=== PATIENT | female | born 1990 | race Caucasian/White ===

== ENCOUNTER 2020-11-21 14:32 | Emergency (ER) | payer OTHER, SELFPAY ==
[2020-11-21 14:34] VITALS: BP 121/73; PULSE 74; RESP 16; TEMP 36.3; O2SAT 97; BMI 16.9
--- NOTE | 2020-11-21 14:42 | DI.RAD.S_ITS ---
PROCEDURE: XR CHEST 1V INDICATIONS: chest pain TECHNIQUE: One view of the chest was acquired. COMPARISON: None. FINDINGS: Surgical changes and devices: None. Lungs and pleura: Lungs are clear. No pleural effusions or pneumothorax. Mediastinum: Mediastinal contours appear normal. Heart size is normal. Bones and chest wall: No suspicious bony lesions. Overlying soft tissues appear unremarkable. IMPRESSION: No acute cardiopulmonary process demonstrated radiographically. Dictated by: Raghu Hinojosa M.D. on 11/21/2020 at 14:57 Approved by: Raghu Hinojosa M.D. on 11/21/2020 at 14:58
[2020-11-21 14:43] VITALS: BP 120/79; BP 121/78; BP 126/74; PULSE 73; PULSE 74; PULSE 88
[2020-11-21 15:08] LABS: Add Manual Diff / Slide Review NO; Basophils Absolute Auto 0 /uL (0-100); Basophils Percent Auto 0.4 % (0-2); Eosinophils Absolute Auto 200 /uL (0-450); Hematocrit 39.5 % (36-46); Hemoglobin 13.1 g/dL (12.0-16.0); Lymphocytes Absolute Auto 1400 /uL (1100-4500); Lymphocytes Percent Auto 26.6 % (25-40); Mean Corpuscular HGB Conc 33.1 % (30-36); Mean Corpuscular Hemoglobin 31.4 PG (26-34); Mean Corpuscular Volume 94.7 fL (80-100); Monocytes Absolute Auto 400 /uL (0-900); Monocytes Percent Auto 6.7 % (3-14); Neutrophils Absolute Auto 3300 /uL (1500-7000); Neutrophils Percent Auto 63.3 % (50-75); Platelet Count 175 X10^3/uL (150-400); Red Blood Cell Count 4.17 X10^6/uL (4.0-5.2); Red Cell Distribution Width 12.6 % (11.6-14.8); White Blood Cell Count 5.2 X10^3/uL (4.5-11.0)
[2020-11-21 15:21] LABS: Alanine Aminotransferase 19 IU/L (<35); Albumin 4.8 g/dL (3.5-5.0); Albumin Globulin Ratio 1.7 (1.0-2.8); Alkaline Phosphatase 48 U/L (38-126); Aspartate Aminotransferase 24 IU/L (14-36); BUN Creatinine Ratio 21.5 (6-22); Bilirubin Total 0.4 mg/dL (0.2-1.3); Blood Urea Nitrogen 14 mg/dL (7-17); Calcium 9.4 mg/dL (8.4-10.2); Carbon Dioxide 28 mmol/L (22-32); Chloride 105 mmol/L (98-107); Creatine Kinase 50 U/L (30-135); Estimated Glomerular Filt Rate > 60.0 mL/min (>60); Globulin 2.9 g/dL (1.7-4.1); Glucose 99 mg/dL (70-100); HEMOLYSIS < 15 (0-50); Lipase 176 U/L (23-300); Magnesium 2.1 mg/dL (1.6-2.3); Potassium 3.7 mmol/L (3.4-5.1); Sodium 142 mmol/L (137-145); Total Protein 7.7 g/dL (6.3-8.2)
[2020-11-21 15:32] LABS: Troponin I < 0.012 ng/mL (0.01-0.034)
[2020-11-21 18:26] VITALS: BP 108/73; PULSE 60; TEMP 36.7; O2SAT 99
[2020-11-21] MEDS: ONDANSETRON 4 MG ODT SL (19:12)
[2020-11-21] MEDS: MECLIZINE HCL 12.5 MG TABLET 25 MG PO (19:12)
[2020-11-21 20:12] LABS: Bacteria Urine Few (2-10); Culture Indicated Urine Cult Not Indicated; RBC Urine 0-1/HPF (0-5/HPF); Squamous Epithelial Cell Urine 1-5 /HPF (0-5/HPF); Transitional Epi Cells Urine 0-1/HPF (0-5/HPF); WBC Urine 0-1/HPF (0-5/HPF)
[2020-11-21 20:15] VITALS: BP 110/75; PULSE 64; RESP 16; O2SAT 99
--- NOTE | 2020-12-05 08:51 | ED.DIZZY ---
HPI - Dizziness <Neda Deleon PA-C - Last Filed: 12/05/20 09:01> General Chief Complaint: Dizziness Stated Complaint: Vertigo, nausea, chest pain. sent by doc Time Seen by Provider: 11/21/20 18:24 History of Present Illness HPI Narrative: 30-year-old female with no reported past medical history presents to the ED with 2 days of dizziness. Patient states that her dizziness started yesterday, has been intermittent, was the worst this morning. Patient describes it as the room moving around her. Patient also endorses some nausea. Patient denies any trouble ambulating. Patient denies fever, chills, chest pain, Nasal congestion, chest congestion, shortness of breath, cough, vomiting, dysuria, abdominal pain, lightheadedness, syncope. denies numbness, tingling, weakness. Review of Systems <Neda Deleon PA-C - Last Filed: 12/05/20 09:01> Constitutional Constitutional: Denies chills, Denies fatigue, Denies fever(s), Denies frequent falls, Denies lethargy and Denies weakness Eyes Eyes: Denies change in vision, Denies eye discharge, Denies irritation and Denies loss of vision ENT Ears, Nose, Mouth, and Throat: Denies change in voice, Reports dizziness, Denies neck pain, Denies sore throat and Denies throat swelling Cardiovascular Cardiovascular: Denies chest pain, Denies irregular heart rhythm, Denies lightheadedness, Denies palpitations, Denies dyspnea, Denies dyspnea on exertion and Denies orthopnea Respiratory Respiratory: Denies cough, Denies dyspnea, Denies dyspnea on exertion and Denies wheezing Gastrointestinal Gastrointestinal: Denies abdominal pain, Denies change in bowel habits, Denies diarrhea, Reports nausea and Denies vomiting Musculoskeletal Musculoskeletal: Denies neck pain and Denies numbness Integumentary/Breasts Skin/Breast: Denies pruritus, Denies erythema, Denies rash and Denies wounds Neurologic Neurologic: Denies behavioral changes, Denies confusion, Reports dizziness, Denies frequent falls, Denies loss of vision, Denies numbness and Denies weakness Psychiatric Psychiatric: Denies anxiety, Denies behavioral changes, Denies confusion, Denies depression, Denies homicidal ideation and Denies suicidal ideation Endocrine Endocrine: Denies fatigue, Denies flushing and Denies palpitations Hematologic/Lymphatic Hematologic/Lymphatic: Denies easy bruising Allergic/Immunologic Allergic/Immunologic: Denies urticaria, Denies throat swelling and Denies wheezing Exam <Neda Deleon PA-C - Last Filed: 12/05/20 09:01> Initial Vital Signs Initial Vital Signs: Vital Signs Temperature 97.3 F L 11/21/20 14:34 Pulse Rate 74 11/21/20 14:34 Respiratory Rate 16 11/21/20 14:34 Blood Pressure 121/73 11/21/20 14:34 Pulse Oximetry 97 11/21/20 14:34 Const General: cooperative [facility] Head: normocephalic and atraumatic Ears: external ears normal and TM's normal bilaterally Nose: external nose normal and No nasal discharge Face and sinus: sinuses nontender, face symmetric, no sinus tenderness and No dry mucous membranes Mouth: oral mucosae normal and moist mucous membranes Teeth and gingiva: dentition normal Throat: tonsils normal and uvula midline Eyes General: appearance normal, both eyes and all related structures Eyelids: eyelids normal Conjunctivae: conjunctivae normal Sclera: sclerae normal Pupils: PERRL EOM: EOM intact bilaterally Neck Neck: normal visual inspection, trachea midline, No lymphadenopathy, No midline deformity and No JVD Lymphatic: No lymphedema Chest Chest: normal inspection of the chest Resp Effort & Inspection: normal respiratory effort, able to speak in complete sentences, no respiratory distress and no use of accessory muscles Auscultation: clear to auscultation bilaterally, no rales, no rhonchi and no wheezes Cardio Rate: regular rate Rhythm: regular rhythm Heart Sounds: no click, no gallops, no murmurs and no rubs Pulses: normal peripheral pulses GI Inspection: non-distended Palpation: soft, no hepatosplenomegaly, No guarding, No pulsatile mass and No tender Auscultation: normal bowel sounds Back/Spine/Pelvis Back: No CVA tenderness Cervical Spine: cervical ROM normal and No pain with cervical ROM Thoracic/Lumbar Spine: thoracic and lumbar spine normal to inspection Skin General: no rashes or lesions noted, No jaundice and No petechiae Neuro General: patient alert, patient oriented x3, gait normal and no focal motor deficits Speech: speech normal Other: PERRLA. CN 1 through 12 intact. Gait normal. Negative rapid alternating movements, negative pronator drift, negative [id number], negative finger to nose. Extrem General: full ROM, no clubbing, cyanosis or edema, no pedal edema and no calf tenderness Psych Appearance: well kempt Mental Status: mental status grossly normal Attitude: cooperative Thought Content: normal and suicidality Judgment: judgment good <Tono Pace DO - Last Filed: 12/09/20 18:48> Initial Vital Signs Initial Vital Signs: Vital Signs Temperature 97.3 F L 11/21/20 14:34 Pulse Rate 74 11/21/20 14:34 Respiratory Rate 16 11/21/20 14:34 Blood Pressure 121/73 11/21/20 14:34 Pulse Oximetry 97 11/21/20 14:34 Course <Neda Deleon PA-C - Last Filed: 12/05/20 09:01> Course Course Narrative: Patient's symptoms greatly improved with meclizine, Zofran. Will discharge home with prescription for meclizine, ED return precautions. Orders Ordered: Discontinued Medications Meclizine HCl (Meclizine Hcl 12.5 Mg Tablet) 25 mg PO NOW ONE Stop: 11/21/20 18:49 Last Admin: 11/21/20 19:12 Dose: 25 mg Documented by: IRINA Ondansetron HCl (Ondansetron 4 Mg/2 Ml Inj) 4 mg IV NOW ONE Stop: 11/21/20 18:49 Last Admin: 11/21/20 19:44 Dose: Not Given Documented by: IRINA Ondansetron HCl (Ondansetron 4 Mg Odt) 4 mg SL NOW ONE Stop: 11/21/20 18:50 Last Admin: 11/21/20 19:12 Dose: 4 mg Documented by: IRINA <Tono Pace DO - Last Filed: 12/09/20 18:48> Orders Ordered: Discontinued Medications Meclizine HCl (Meclizine Hcl 12.5 Mg Tablet) 25 mg PO NOW ONE Stop: 11/21/20 18:49 Last Admin: 11/21/20 19:12 Dose: 25 mg Documented by: IRINA Ondansetron HCl (Ondansetron 4 Mg/2 Ml Inj) 4 mg IV NOW ONE Stop: 11/21/20 18:49 Last Admin: 11/21/20 19:44 Dose: Not Given Documented by: IRINA Ondansetron HCl (Ondansetron 4 Mg Odt) 4 mg SL NOW ONE Stop: 11/21/20 18:50 Last Admin: 11/21/20 19:12 Dose: 4 mg Documented by: IRINA MDM - Dizziness <Neda Deleon PA-C - Last Filed: 12/05/20 09:01> Medical Records Attestation: I reviewed the patient's medical records. Lab Data Attestation: I reviewed the patient's lab results. Lab results narrative: Labs within normal limits. UA negative. Result diagrams: 11/21/20 14:44 11/21/20 14:44 Labs: Lab Results 11/21/20 11/21/20 11/21/20 Range/Units 14:44 14:44 19:38 WBC 5.2 (4.5-11.0) X10^3/uL RBC 4.17 (4.0-5.2) X10^6/uL Hgb 13.1 (12.0-16.0) g/dL Hct 39.5 (36-46) % MCV 94.7 (80-100) fL MCH 31.4 (26-34) PG MCHC 33.1 (30-36) % RDW 12.6 (11.6-14.8) % Plt Count 175 (150-400) X10^3/uL Neut % (Auto) 63.3 (50-75) % Lymph % (Auto) 26.6 (25-40) % [place] % (Auto) 6.7 (3-14) % Eos % (Auto) 3.0 (2-4) % Baso % (Auto) 0.4 (0-2) % Neut # (Auto) 3300 (9060-2411) /uL Lymph # (Auto) 1400 (3828-0683) /uL [place] # (Auto) 400 (0-900) /uL Eos # (Auto) 200 (0-450) /uL Baso # (Auto) 0 (0-100) /uL Sodium 142 (137-145) mmol/L Potassium 3.7 (3.4-5.1) mmol/L Chloride 105 (98-107) mmol/L Carbon Dioxide 28 (22-32) mmol/L BUN 14 (7-17) mg/dL Creatinine 0.65 (0.52-1.04) mg/dL Estimated GFR > 60.0 (>60) mL/min BUN/Creatinine Ratio 21.5 (6-22) Glucose 99 (70-100) mg/dL Calcium 9.4 (8.4-10.2) mg/dL Magnesium 2.1 (1.6-2.3) mg/dL Total Bilirubin 0.4 (0.2-1.3) mg/dL AST 24 (14-36) IU/L ALT 19 (<35) IU/L Alkaline Phosphatase 48 (38-126) U/L Total Creatine Kinase 50 (30-135) U/L CK-MB (CK-2) TNP CK-MB (CK-2) Rel Index TNP Troponin I < 0.012 (0.01-0.034) ng/mL Total Protein 7.7 (6.3-8.2) g/dL Albumin 4.8 (3.5-5.0) g/dL Globulin 2.9 (1.7-4.1) g/dL Albumin/Globulin Ratio 1.7 (1.0-2.8) Lipase 176 (23-300) U/L Urine RBC 0-1/hpf (0-5/HPF) Urine WBC 0-1/hpf (0-5/HPF) Ur Squamous Epith Cells 1-5 /hpf (0-5/HPF) Ur Transition Epith Cell 0-1/hpf (0-5/HPF) Urine Bacteria Few (2-10) H (None) Ur Culture Indicated? Cult not indicated Point of Care Testing Test Results Negative Urine Dip Bedside Urine Glucose Negative Bedside Urine Bilirubin - Negative Bedside Urine Ketone - Negative Urine Specific [place] 1.010 Bedside Urine Occult Blood +/- Bedside Urine pH 705 Bedside Urine Protein - Negative Bedside Urine Urobilinogen - Negative Bedside Urine Nitrite - Negative Bedside Urine Leukocytes - Negative Esterase MDM Narrative Medical decision making narrative: 30-year-old female with no reported past medical history presents to the ED with 2 days of dizziness. Given reassuring physical exam, neuro intact, likely peripheral vertigo. Will treat with meclizine, Zofran, re-evaluate. <Tono Pace DO - Last Filed: 12/09/20 18:48> Lab Data Labs: Lab Results 11/21/20 11/21/20 11/21/20 Range/Units 14:44 14:44 19:38 WBC 5.2 (4.5-11.0) X10^3/uL RBC 4.17 (4.0-5.2) X10^6/uL Hgb 13.1 (12.0-16.0) g/dL Hct 39.5 (36-46) % MCV 94.7 (80-100) fL MCH 31.4 (26-34) PG MCHC 33.1 (30-36) % RDW 12.6 (11.6-14.8) % Plt Count 175 (150-400) X10^3/uL Neut % (Auto) 63.3 (50-75) % Lymph % (Auto) 26.6 (25-40) % [place] % (Auto) 6.7 (3-14) % Eos % (Auto) 3.0 (2-4) % Baso % (Auto) 0.4 (0-2) % Neut # (Auto) 3300 (9486-5372) /uL Lymph # (Auto) 1400 (4940-1302) /uL [place] # (Auto) 400 (0-900) /uL Eos # (Auto) 200 (0-450) /uL Baso # (Auto) 0 (0-100) /uL Sodium 142 (137-145) mmol/L Potassium 3.7 (3.4-5.1) mmol/L Chloride 105 (98-107) mmol/L Carbon Dioxide 28 (22-32) mmol/L BUN 14 (7-17) mg/dL Creatinine 0.65 (0.52-1.04) mg/dL Estimated GFR > 60.0 (>60) mL/min BUN/Creatinine Ratio 21.5 (6-22) Glucose 99 (70-100) mg/dL Calcium 9.4 (8.4-10.2) mg/dL Magnesium 2.1 (1.6-2.3) mg/dL Total Bilirubin 0.4 (0.2-1.3) mg/dL AST 24 (14-36) IU/L ALT 19 (<35) IU/L Alkaline Phosphatase 48 (38-126) U/L Total Creatine Kinase 50 (30-135) U/L CK-MB (CK-2) TNP CK-MB (CK-2) Rel Index TNP Troponin I < 0.012 (0.01-0.034) ng/mL Total Protein 7.7 (6.3-8.2) g/dL Albumin 4.8 (3.5-5.0) g/dL Globulin 2.9 (1.7-4.1) g/dL Albumin/Globulin Ratio 1.7 (1.0-2.8) Lipase 176 (23-300) U/L Urine RBC 0-1/hpf (0-5/HPF) Urine WBC 0-1/hpf (0-5/HPF) Ur Squamous Epith Cells 1-5 /hpf (0-5/HPF) Ur Transition Epith Cell 0-1/hpf (0-5/HPF) Urine Bacteria Few (2-10) H (None) Ur Culture Indicated? Cult not indicated Point of Care Testing Test Results Negative Urine Dip Bedside Urine Glucose Negative Bedside Urine Bilirubin - Negative Bedside Urine Ketone - Negative Urine Specific [place] 1.010 Bedside Urine Occult Blood +/- Bedside Urine pH 705 Bedside Urine Protein - Negative Bedside Urine Urobilinogen - Negative Bedside Urine Nitrite - Negative Bedside Urine Leukocytes - Negative Esterase Discharge Plan Departure Patient Disposition: Home Clinical Impression: Dizziness Instructions: Vertigo Activity Restrictions/Additional Instructions: You were evaluated in the ED today for dizziness, nausea, chest tightness. Your chest x-ray, EKG, labs were normal. Your physical exam was also very reassuring. You can take meclizine for dizziness. Return to the ED if your symptoms worsen, you in control of bleed vomit, or unable to keep any fluids or solids down. <Tono Pace DO - Last Filed: 12/09/20 18:48> Cosign ED Attending Cosignature Attestation: I was immediately available in the department for consultation. This documentation has been reviewed and I agree with assessment and plan. Supervised by Tono Pace DO
== END 2020-11-21 20:15 | disposition home or self-care (01) ==
PROVIDERS: Emergency Medicine; Emergency Provider Student in an Organized Health Care Education/Training Program
DX: R42 Dizziness and giddiness (principal); R07.9 Chest pain, unspecified
CPT/HCPCS: 36415; 71045; 80053; 81003; 81015; 81025; 82550; 83690; 83735; 84484; 85025; 93005; 99283; 99284

== ENCOUNTER 2020-12-11 23:28 | Emergency (ER) | payer OTHER, SELFPAY ==
[2020-12-11 23:38] VITALS: PULSE 76; RESP 12; TEMP 36.7; O2SAT 99; BMI 17.4
[2020-12-11 23:41] VITALS: BP 111/76; PULSE 76; RESP 20; O2SAT 99
[2020-12-12] VITALS: BP 101/63; PULSE 71; RESP 20; O2SAT 96
--- NOTE | 2020-12-12 00:15 | ED.ARRPALP ---
HPI - Arrhythmia/Palpitations General Chief Complaint: Arrhythmia/Palpitations Stated Complaint: chest pain/tightness x8 hours Time Seen by Provider: 12/11/20 23:46 Source: patient Mode of arrival: Ambulatory History of Present Illness HPI narrative: Patient is a 30-year-old female. Early there was month she was seen here in the emergency department for dizziness. She was given meclizine. The symptoms have all but resolved however she has had occasional chest discomfort and chest tightness and palpitations and shortness of breath since that time. She has seen her primary doctor. Was instructed that she should follow-up with cardiology but does not have this scheduled up until this point. Today while at work she again had the symptoms. She describes it as a fullness in her chest. She currently is not having any symptoms. Has not tried anything for the symptoms prior to arrival. Review of Systems Constitutional Constitutional: Denies fever(s) Cardiovascular Cardiovascular: Reports as per HPI Respiratory Respiratory: Reports as per HPI Gastrointestinal Gastrointestinal: Reports as per HPI and Reports system reviewed and no additional complaints, except as documented Genitourinary Genitourinary: Reports system reviewed and no additional complaints, except as documented Integumentary/Breasts Skin/Breast: Reports system reviewed and no additional complaints, except as documented Neurologic Neurologic: Reports system reviewed and no additional complaints, except as documented Hematologic/Lymphatic On Anticoagulants: No Patient History Medical History Healthy adult Social History Smoking Status: Never smoker Smoking Status: Never smoker alcohol intake frequency: a few times a month Substance Use Type: does not use Exam Initial Vital Signs Initial Vital Signs: Vital Signs Temperature 98.0 F 12/11/20 23:38 Pulse Rate 76 12/11/20 23:38 Respiratory Rate 12 12/11/20 23:38 Pulse Oximetry 99 12/11/20 23:38 Const General: cooperative, healthy appearing, comfortable and well developed [facility] Head: normal to inspection and normocephalic Eyes General: appearance normal, both eyes and all related structures Resp Effort & Inspection: normal respiratory effort Auscultation: clear to auscultation bilaterally Cardio Rate: regular rate Rhythm: regular rhythm GI Inspection: non-distended Palpation: soft Skin General: no rashes or lesions noted Neuro General: patient alert, patient awake, patient oriented x3 and moves all extremities Extrem General: normal to inspection, capillary refill normal and No edema Psych Appearance: grossly normal Course Orders Ordered: ED Orders 12/11/20 23:38 EKG-12 Lead Stat 12/12/20 00:27 XR chest 1V Stat Vital Signs Vital signs: Vital Signs - 8 hr 12/11/20 23:38 12/11/20 23:41 12/12/20 00:00 Temperature 98.0 F Pulse Rate 76 76 71 Respiratory Rate 12 20 20 Blood Pressure 111/76 101/63 Pulse Oximetry 99 99 96 MDM - Arrhythmia/Palpitations Imaging Data Chest x-ray: Radiologist's Impresson: [address] [address] XRay Report Signed Patient: Shayla Rubin MR#: [id number] : 1990 Acct:[id number] Age/Sex: 30 / F Date of Service: 12/12/20 Loc: ED Accession Number: [id number] ?? Procedure: XR chest 1V Ordering Provider: Moi Wright D.O. PROCEDURE:? XR CHEST 1V ? INDICATIONS:? SOB ? TECHNIQUE:? One view of the chest was acquired.? ? COMPARISON:? [facility], , XR CHEST 1V, 11/21/2020, 14:42. ? FINDINGS:? ? Surgical changes and devices:? None.? ? Lungs and pleura:? Lungs are clear.? No pleural effusions or pneumothorax.? ? Mediastinum:? Mediastinal contours appear normal.? Heart size is normal.? ? Bones and chest wall:? No suspicious bony lesions.? Overlying soft tissues appear unremarkable.? ? IMPRESSION:? No acute cardiopulmonary disease. ? ? Dictated by: Emilee Castillo M.D. on 12/12/2020 at 1:00 ? ? Approved by: Emilee Castillo M.D. on 12/12/2020 at 1:01?? ECG Data Attestation: I personally reviewed and interpreted this ECG as follows: Prior ECG tracings: available for review Interpretation: Sinus rhythm Ventricular rate is 78 Normal axis Normal QRS Normal QTC No ST T wave changes MDM Narrative Medical decision making narrative: Patient is asymptomatic. Chest x-ray is unremarkable. EKG is unremarkable. Low suspicion for ACS. Low suspicion for CVA. No indication for antibiotics. Has a benign exam. Will have her contact her primary doctor and continue with a follow-up with Cardiology. She will most likely need a Holter monitor and potentially stress testing. She was given return precautions and follow-up instructions. She expressed understanding agreement. Discharge Plan Departure Patient Disposition: Home Clinical Impression: Atypical chest pain Instructions: DI for Atypical Chest Pain Activity Restrictions/Additional Instructions: Recommend that you talk with your primary doctor about the indications for a referral to see Cardiology, a Holter monitor, stress testing. Your EKG and chest x-ray today are all unremarkable. Return to the emergency department for any new or worsening symptoms
--- NOTE | 2020-12-12 00:27 | DI.RAD.S_ITS ---
PROCEDURE: XR CHEST 1V INDICATIONS: SOB TECHNIQUE: One view of the chest was acquired. COMPARISON: [facility], CR, XR CHEST 1V, 11/21/2020, 14:42. FINDINGS: Surgical changes and devices: None. Lungs and pleura: Lungs are clear. No pleural effusions or pneumothorax. Mediastinum: Mediastinal contours appear normal. Heart size is normal. Bones and chest wall: No suspicious bony lesions. Overlying soft tissues appear unremarkable. IMPRESSION: No acute cardiopulmonary disease. Dictated by: Emilee Castillo M.D. on 12/12/2020 at 1:00 Approved by: Emilee Castillo M.D. on 12/12/2020 at 1:01
[2020-12-12 00:30] VITALS: BP 106/62; PULSE 71; RESP 27; O2SAT 96
[2020-12-12 01:00] VITALS: BP 94/59; PULSE 71; RESP 18; O2SAT 96
== END 2020-12-12 01:12 | disposition home or self-care (01) ==
PROVIDERS: Emergency Provider Emergency Medicine
DX: R07.89 Other chest pain (principal); R42 Dizziness and giddiness; R00.2 Palpitations
CPT/HCPCS: 71045; 93005; 99283; 99284

== ENCOUNTER → 2021-01-08 08:51 | Outpatient (CLI) | payer OTHER, SELFPAY ==
--- NOTE | 2021-01-08 | DI.ECHO.S_ITS ---
[facility]---------+ [facility] +---------+ : : [address] : : : : [id number] : : : : Phone: [phone] Echocardiogram Report + + :Name: JUN MARTINES Study Date: 01/08/2021 Height: 66 in : :[facility] ReadingLocation: Weight: 110 lb : : Gender: Female BSA: 1.6 m2 : :: 1990 Age: 30 yrs BP: 113/71 mmHg: :Reason For Study: CHEST PAIN : :Ordering Physician: RACH, : :ABISAI Medel Performed By: Yani Magallon : :Referring: ABISAI LOYD : + + Interpretation Summary Normal sinus rhythm. Normal LV size, wall thickness, wall motion and LV systolic function. EF is 60-65%. Normal chamber sizes. No valvular abnormalities. No prior study available for comparison. Procedure: A two-dimensional transthoracic echocardiogram with color flow and Doppler was performed. The study quality was technically good. There is no prior echocardiogram noted for this patient. The patient was in sinus rhythm with heart rates between 72-85 bpm during the exam. Left Ventricle: The left ventricle is normal in size and wall thickness. The ejection fraction is estimated to be 60-65%. Right Ventricle: The right ventricle is normal in size and function. Atria: The left atrial size is normal. Right atrial size is normal. There is no Doppler evidence for an interatrial shunt. Mitral Valve: The mitral valve is normal in structure and function. There is no mitral regurgitation noted. Aortic Valve: The aortic valve is trileaflet. The aortic valve opens well. There is no aortic valve stenosis. No aortic regurgitation is present. Tricuspid Valve: The tricuspid valve is normal in structure and function. There is trace tricuspid regurgitation. Pulmonary artery pressures cannot be estimated because of the lack of a measurable TR jet velocity but the IVC suggests a CVP of around 3 mmHg. Pulmonic Valve: The pulmonic valve leaflets are thin and pliable; valve motion is normal. There is trace pulmonic regurgitation. Great Vessels: The aortic root is normal size. The dimensions of the ascending aorta are normal. The IVC is of normal diameter and collapses greater than 50% with a sniff. This suggests a low right atrial pressure of 3 mm Hg. Pericardium/ Pleura There is no pericardial effusion. There is no pleural effusion. MMode/2D Measurements & Calculations LVIDd: 4.2 cm LVOT diam: 1.8 cm LVIDs: 2.9 cm Ao root diam: 2.8 cm FS: 31.2 % asc Aorta Diam: 2.9 cm IVSd: 0.51 cm Ao Arch Diam (Prox Trans): 2.3 cm LVPWd: 0.62 cm LV sosa. diameter/BSA (cm/m^2): 2.7 LV sys. diameter/BSA (cm/m^2): 1.8 LA A2 area: 13.3 cm2 RA long axis: 3.8 cm LA A4 area: 14.5 cm2 RA area: 10.3 cm2 LA length (vol): 4.2 cm RA vol: 23.6 ml LA vol: 38.9 ml RA : 15.2 ml/m2 LA vol index: 25.1 ml/m2 IVC diam: 2.0 cm RVD1 (basal): 3.3 cm TAPSE: 1.8 cm Doppler Measurements & Calculations Ao V2 max: 121.6 cm/sec LVOT Max Silas: 91.9 cm/sec Ao V2 mean: 85.4 cm/sec LV V1 max P.4 mmHg Ao max P.9 mmHg LV V1 VTI: 19.3 cm Ao mean P.2 mmHg RYAN(I,D): 1.9 cm2 Ao V2 VTI: 24.9 cm RYAN(V,D): 1.8 cm2 sev ratio: 0.78 RYAN indexed to BSA (cm^2/m^2): 1.2 MV E max silas: 86.6 cm/sec PA V2 max: 97.7 cm/sec MV A max silas: 58.0 cm/sec PA V2 mean: 72.2 cm/sec MV E/A: 1.5 PA mean P.3 mmHg Med Peak E' Silas: 12.8 cm/sec PA pr(Accel): 30.2 mmHg E/E' med: 6.8 Lat Peak E' Silas: 13.1 cm/sec E/E' lat: 6.6 E/e' average: 6.7 MV dec time: 0.16 sec SV(LVOT): 46.6 ml Electronically signed by: Sarah Doss M.D. on Reading Physician:01/08/2021 01:05 PM
== END ==
PROVIDERS: Referring Provider Family Medicine; Visit Provider Family Medicine
DX: R07.9 Chest pain, unspecified (principal); R42 Dizziness and giddiness
CPT/HCPCS: 93306

== ENCOUNTER 2021-02-05 16:48 | Emergency (ER) | payer OTHER, SELFPAY ==
[2021-02-05 16:55] VITALS: BP 128/89; PULSE 79; RESP 18; TEMP 36.6; O2SAT 100; BMI 17.7
--- NOTE | 2021-02-05 17:13 | DI.RAD.S_ITS ---
PROCEDURE: XR CHEST 2V INDICATIONS: Chest pain TECHNIQUE: 2 views of the chest were acquired. COMPARISON: [facility], CR, XR CHEST 1V, 12/12/2020, 0:29. FINDINGS: Surgical changes and devices: None. Lungs and pleura: Mild patchy bilateral perihilar opacity.. No pleural effusions or pneumothorax. Mediastinum: Mediastinal contours are normal. Heart size is normal. Bones and chest wall: No suspicious bony abnormalities. Soft tissues appear unremarkable. IMPRESSION: Mild atypical pneumonia Dictated by: Jayla Rivera M.D. on 02/05/2021 at 17:38 Approved by: Jayla Rivera M.D. on 02/05/2021 at 17:38
[2021-02-05 17:41] LABS: Add Manual Diff / Slide Review NO; Basophils Absolute Auto 0 /uL (0-100); Basophils Percent Auto 0.3 % (0-2); Eosinophils Absolute Auto 200 /uL (0-450); Eosinophils Percent Auto 1.9 % (2-4); Hematocrit 37.8 % (36-46); Hemoglobin 12.9 g/dL (12.0-16.0); Lymphocytes Absolute Auto 1400 /uL (1100-4500); Lymphocytes Percent Auto 16.6 % (25-40); Mean Corpuscular HGB Conc 34.1 % (30-36); Mean Corpuscular Hemoglobin 31.6 PG (26-34); Mean Corpuscular Volume 92.7 fL (80-100); Monocytes Absolute Auto 500 /uL (0-900); Monocytes Percent Auto 6.4 % (3-14); Neutrophils Absolute Auto 6300 /uL (1500-7000); Neutrophils Percent Auto 74.8 % (50-75); Platelet Count 159 X10^3/uL (150-400); Red Blood Cell Count 4.08 X10^6/uL (4.0-5.2); Red Cell Distribution Width 12.6 % (11.6-14.8); White Blood Cell Count 8.4 X10^3/uL (4.5-11.0)
[2021-02-05 17:47] VITALS: PULSE 67; RESP 19; O2SAT 99
[2021-02-05 17:50] LABS: COVID19 -Nasal RAPID Negative (Negative)
[2021-02-05 17:58] LABS: Alanine Aminotransferase 23 IU/L (<35); Albumin 4.8 g/dL (3.5-5.0); Albumin Globulin Ratio 1.7 (1.0-2.8); Alkaline Phosphatase 48 U/L (38-126); Aspartate Aminotransferase 28 IU/L (14-36); BUN Creatinine Ratio 19.4 (6-22); Bilirubin Total 0.4 mg/dL (0.2-1.3); Blood Urea Nitrogen 13 mg/dL (7-17); Calcium 9.4 mg/dL (8.4-10.2); Carbon Dioxide 26 mmol/L (22-32); Chloride 105 mmol/L (98-107); Creatine Kinase 79 U/L (30-135); Estimated Glomerular Filt Rate > 60.0 mL/min (>60); Globulin 2.9 g/dL (1.7-4.1); Glucose 90 mg/dL (70-100); HEMOLYSIS < 15 (0-50); Lipase 168 U/L (23-300); Magnesium 2.2 mg/dL (1.6-2.3); Potassium 3.7 mmol/L (3.4-5.1); Sodium 138 mmol/L (137-145); Total Protein 7.7 g/dL (6.3-8.2)
[2021-02-05 18:00] VITALS: BP 109/65; PULSE 73; RESP 21; O2SAT 98
[2021-02-05 18:10] LABS: Troponin I < 0.012 ng/mL (0.01-0.034)
[2021-02-05 18:30] VITALS: BP 109/67; PULSE 73; RESP 19; O2SAT 99
[2021-02-05 18:56] VITALS: BP 109/67; PULSE 76; RESP 18; TEMP 36.9; O2SAT 99
--- NOTE | 2021-02-05 20:25 | ED.CHESTPAIN ---
HPI - Chest Pain <Neda Deleon PA-C - Last Filed: 02/05/21 20:33> General Chief Complaint: Chest Pain Stated Complaint: SHARP PAIN IN THE LUNGS Time Seen by Provider: 02/05/21 17:23 Source: patient Mode of arrival: Ambulatory Limitations: no limitations History of Present Illness HPI narrative: 30-year-old female with no reported past medical history presents to the ED with 2 days of right-sided chest discomfort. Patient states she had a cold and a cough 1 week ago, but yesterday she started feeling right-sided chest discomfort which he describes as some vibrations in her chest. Patient states the discomfort is aggravated by inspiration. Patient also endorses some chills that she experienced earlier today. Patient denies fever, shortness of breath, nausea, vomiting, abdominal pain, dysuria, lightheadedness, dizziness, syncope. Patient states that she tested negative for COVID last week. Patient denies history of blood clots, family history of blood clots, recent immobilization, recent surgeries, exogenous hormone use. Related Data Previous Rx's Medication Instructions Recorded azithromycin 250 mg tablet See Rx Instructions .ROUTE 02/05/21 (Zithromax Z-Bernard) .COMPLEX #6 tab Allergies Allergy/AdvReac Type Severity Reaction Status Date / Time No Known Drug Allergies Allergy Verified 02/05/21 16:55 Review of Systems <Neda Deleon PA-C - Last Filed: 02/05/21 20:33> Review of Systems ROS Unobtainable: All systems reviewed & are unremarkable except as noted in HPI and below Constitutional Constitutional: Reports chills, Denies fatigue, Denies fever(s), Denies frequent falls, Denies lethargy and Denies weakness Eyes Eyes: Denies change in vision, Denies eye discharge, Denies irritation and Denies loss of vision ENT Ears, Nose, Mouth, and Throat: Denies change in voice, Denies dizziness, Denies neck pain, Denies sore throat and Denies throat swelling Cardiovascular Cardiovascular: Reports chest pain, Denies irregular heart rhythm, Denies lightheadedness, Denies palpitations, Denies dyspnea, Denies dyspnea on exertion and Denies orthopnea Respiratory Respiratory: Denies cough, Denies dyspnea, Denies dyspnea on exertion and Denies wheezing Gastrointestinal Gastrointestinal: Denies abdominal pain, Denies change in bowel habits, Denies diarrhea, Denies nausea and Denies vomiting Genitourinary Genitourinary: Denies hematuria, Denies flank pain, Denies urinary incontinence and Denies urinary urgency Musculoskeletal Musculoskeletal: Denies back pain, Denies muscle weakness, Denies neck pain, Denies numbness and Denies tingling Integumentary/Breasts Skin/Breast: Denies pruritus, Denies erythema, Denies rash and Denies wounds Neurologic Neurologic: Denies behavioral changes, Denies confusion, Denies dizziness, Denies frequent falls, Denies loss of vision, Denies numbness, Denies tingling and Denies weakness Psychiatric Psychiatric: Denies anxiety, Denies behavioral changes, Denies confusion, Denies depression, Denies homicidal ideation and Denies suicidal ideation Endocrine Endocrine: Denies fatigue, Denies flushing and Denies palpitations Hematologic/Lymphatic Hematologic/Lymphatic: Denies easy bruising Allergic/Immunologic Allergic/Immunologic: Denies urticaria, Denies throat swelling and Denies wheezing Patient History <Neda Deleon PA-C - Last Filed: 02/05/21 20:33> Medical History Healthy adult Social History Smoking Status: Never smoker Smoking Status: Never smoker alcohol intake frequency: a few times a month Substance Use Type: does not use Exam <Neda Deleon PA-C - Last Filed: 02/05/21 20:33> Initial Vital Signs Initial Vital Signs: Vital Signs Temperature 97.9 F 02/05/21 16:55 Pulse Rate 79 02/05/21 16:55 Respiratory Rate 18 02/05/21 16:55 Blood Pressure 128/89 02/05/21 16:55 Pulse Oximetry 100 02/05/21 16:55 Const General: cooperative, healthy appearing and comfortable [facility] Head: normal to inspection Eyes General: appearance normal, both eyes and all related structures Neck Neck: normal visual inspection Chest Chest: normal inspection of the chest Resp Effort & Inspection: normal respiratory effort Auscultation: clear to auscultation bilaterally Cardio Rate: regular rate Rhythm: regular rhythm GI Other: Abdomen is soft, nontender, nondistended. General: No CVA tenderness Back/Spine/Pelvis Back: normal to inspection Skin General: no rashes or lesions noted Neuro General: patient alert, patient awake and patient oriented x3 <Katherine Joseph DO - Last Filed: 02/06/21 13:58> Initial Vital Signs Initial Vital Signs: Vital Signs Temperature 97.9 F 02/05/21 16:55 Pulse Rate 79 02/05/21 16:55 Respiratory Rate 18 02/05/21 16:55 Blood Pressure 128/89 02/05/21 16:55 Pulse Oximetry 100 02/05/21 16:55 Course <Neda Deleon PA-C - Last Filed: 02/05/21 20:33> Orders Ordered: ED Orders 02/05/21 17:00 COVID19 -Nasal swab/Pre-Proc Stat 02/05/21 17:13 XR chest 2V Stat 02/05/21 17:21 EKG-12 Lead Stat 02/05/21 17:30 Complete Blood Count AUTO DIFF Stat Comprehensive Metabolic Panel Stat Lipase Stat Magnesium Stat Troponin & CK Cardiac Panel Stat Vital Signs Vital signs: Vital Signs - 8 hr 02/05/21 16:55 02/05/21 17:47 02/05/21 18:00 Temperature 97.9 F Pulse Rate 79 67 73 Respiratory Rate 18 19 21 Blood Pressure 128/89 109/65 Pulse Oximetry 100 99 98 02/05/21 18:30 02/05/21 18:56 Temperature 98.4 F Pulse Rate 73 76 Respiratory Rate 19 18 Blood Pressure 109/67 109/67 Pulse Oximetry 99 99 <Katherine Joseph DO - Last Filed: 02/06/21 13:58> Orders Ordered: ED Orders 02/05/21 17:00 COVID19 -Nasal swab/Pre-Proc Stat 02/05/21 17:13 XR chest 2V Stat 02/05/21 17:21 EKG-12 Lead Stat 02/05/21 17:30 Complete Blood Count AUTO DIFF Stat Comprehensive Metabolic Panel Stat Lipase Stat Magnesium Stat Troponin & CK Cardiac Panel Stat Vital Signs Vital signs: Vital Signs - 8 hr 02/05/21 16:55 02/05/21 17:47 02/05/21 18:00 Temperature 97.9 F Pulse Rate 79 67 73 Respiratory Rate 18 19 21 Blood Pressure 128/89 109/65 Pulse Oximetry 100 99 98 02/05/21 18:30 02/05/21 18:56 Temperature 98.4 F Pulse Rate 73 76 Respiratory Rate 19 18 Blood Pressure 109/67 109/67 Pulse Oximetry 99 99 MDM - Chest Pain <Neda Deleon PA-C - Last Filed: 02/05/21 20:33> Lab Data Attestation: I reviewed the patient's lab results. Lab results narrative: Labs within normal limits. Result diagrams: 02/05/21 17:30 02/05/21 17:30 Labs: Lab Results 02/05/21 02/05/21 02/05/21 Range/Units 17:00 17:30 17:30 WBC 8.4 (4.5-11.0) X10^3/uL RBC 4.08 (4.0-5.2) X10^6/uL Hgb 12.9 (12.0-16.0) g/dL Hct 37.8 (36-46) % MCV 92.7 (80-100) fL MCH 31.6 (26-34) PG MCHC 34.1 (30-36) % RDW 12.6 (11.6-14.8) % Plt Count 159 (150-400) X10^3/uL Neut % (Auto) 74.8 (50-75) % Lymph % (Auto) 16.6 L (25-40) % [place] % (Auto) 6.4 (3-14) % Eos % (Auto) 1.9 L (2-4) % Baso % (Auto) 0.3 (0-2) % Neut # (Auto) 6300 (3370-1682) /uL Lymph # (Auto) 1400 (1048-6267) /uL [place] # (Auto) 500 (0-900) /uL Eos # (Auto) 200 (0-450) /uL Baso # (Auto) 0 (0-100) /uL Sodium 138 (137-145) mmol/L Potassium 3.7 (3.4-5.1) mmol/L Chloride 105 (98-107) mmol/L Carbon Dioxide 26 (22-32) mmol/L BUN 13 (7-17) mg/dL Creatinine 0.67 (0.52-1.04) mg/dL Estimated GFR > 60.0 (>60) mL/min BUN/Creatinine Ratio 19.4 (6-22) Glucose 90 (70-100) mg/dL Calcium 9.4 (8.4-10.2) mg/dL Magnesium 2.2 (1.6-2.3) mg/dL Total Bilirubin 0.4 (0.2-1.3) mg/dL AST 28 (14-36) IU/L ALT 23 (<35) IU/L Alkaline Phosphatase 48 (38-126) U/L Total Creatine Kinase 79 (30-135) U/L CK-MB (CK-2) TNP CK-MB (CK-2) Rel Index TNP Troponin I < 0.012 (0.01-0.034) ng/mL Total Protein 7.7 (6.3-8.2) g/dL Albumin 4.8 (3.5-5.0) g/dL Globulin 2.9 (1.7-4.1) g/dL Albumin/Globulin Ratio 1.7 (1.0-2.8) Lipase 168 (23-300) U/L SARS-CoV-2 (PCR) Negative (Negative) Imaging Data Chest x-ray: Radiologist's Impression: PROCEDURE:? XR CHEST 2V ? INDICATIONS:? Chest pain ? TECHNIQUE:? 2 views of the chest were acquired.? ? COMPARISON:? [facility], CR, XR CHEST 1V, 12/12/2020, 0:29. ? FINDINGS:? ? Surgical changes and devices:? None.? ? Lungs and pleura:? Mild patchy bilateral perihilar opacity..? No pleural effusions or pneumothorax.? ? Mediastinum:? Mediastinal contours are normal.? Heart size is normal.? ? Bones and chest wall:? No suspicious bony abnormalities.? Soft tissues appear unremarkable.? ? IMPRESSION:? Mild atypical pneumonia ? ? Dictated by: Jayla Rivera M.D. on 02/05/2021 at 17:38 ? ? [facility] Narrative Medical decision making narrative: 30-year-old female with no reported past medical history presents to the ED with 2 days of right-sided chest discomfort. Concern for COVID-19 versus URI versus pneumonia versus bronchitis. Will order chest x-ray, EKG, labs. Chest x-ray positive for mild atypical pneumonia. Labs within normal limits. Discharge patient home with prescription for azithromycin. ED return precautions discussed. Patient verbalized understanding. <Katherine Joseph, DO - Last Filed: 02/06/21 13:58> Lab Data Labs: Lab Results 02/05/21 02/05/21 02/05/21 Range/Units 17:00 17:30 17:30 WBC 8.4 (4.5-11.0) X10^3/uL RBC 4.08 (4.0-5.2) X10^6/uL Hgb 12.9 (12.0-16.0) g/dL Hct 37.8 (36-46) % MCV 92.7 (80-100) fL MCH 31.6 (26-34) PG MCHC 34.1 (30-36) % RDW 12.6 (11.6-14.8) % Plt Count 159 (150-400) X10^3/uL Neut % (Auto) 74.8 (50-75) % Lymph % (Auto) 16.6 L (25-40) % [place] % (Auto) 6.4 (3-14) % Eos % (Auto) 1.9 L (2-4) % Baso % (Auto) 0.3 (0-2) % Neut # (Auto) 6300 (5119-8416) /uL Lymph # (Auto) 1400 (4270-6366) /uL [place] # (Auto) 500 (0-900) /uL Eos # (Auto) 200 (0-450) /uL Baso # (Auto) 0 (0-100) /uL Sodium 138 (137-145) mmol/L Potassium 3.7 (3.4-5.1) mmol/L Chloride 105 (98-107) mmol/L Carbon Dioxide 26 (22-32) mmol/L BUN 13 (7-17) mg/dL Creatinine 0.67 (0.52-1.04) mg/dL Estimated GFR > 60.0 (>60) mL/min BUN/Creatinine Ratio 19.4 (6-22) Glucose 90 (70-100) mg/dL Calcium 9.4 (8.4-10.2) mg/dL Magnesium 2.2 (1.6-2.3) mg/dL Total Bilirubin 0.4 (0.2-1.3) mg/dL AST 28 (14-36) IU/L ALT 23 (<35) IU/L Alkaline Phosphatase 48 (38-126) U/L Total Creatine Kinase 79 (30-135) U/L CK-MB (CK-2) TNP CK-MB (CK-2) Rel Index TNP Troponin I < 0.012 (0.01-0.034) ng/mL Total Protein 7.7 (6.3-8.2) g/dL Albumin 4.8 (3.5-5.0) g/dL Globulin 2.9 (1.7-4.1) g/dL Albumin/Globulin Ratio 1.7 (1.0-2.8) Lipase 168 (23-300) U/L SARS-CoV-2 (PCR) Negative (Negative) ECG Data Attestation: I personally reviewed and interpreted this ECG as follows: Prior ECG tracings: available for review Interpretation: Sinus rhythm rate of 70 P are 162 QRS 86 and QTC of 460. Acute ST elevation or depression appreciated. Patient has some nonspecific change. Discharge Plan Departure Patient Disposition: Home Clinical Impression: Atypical pneumonia Instructions: DI for Atypical Pneumonia Activity Restrictions/Additional Instructions: You were evaluated in the ED today for right-sided chest pain. Your x-ray shows mild atypical pneumonia. You have been started on the antibiotic azithromycin. Please complete the full course of antibiotics. Return to the ED if your symptoms worsen, you develop fevers, chills, shortness of breath, chest pain. Follow-up with your PCP. Prescriptions: New azithromycin [Zithromax Z-Bernard] 250 mg tablet See Rx Instructions .ROUTE .COMPLEX Qty: 6 0RF Rx Instructions: For 250 mg dose pack: take 500 mg today (day 1), then 250 mg for 4 days (days 2-5) <Katherine Joseph, - Last Filed: 02/06/21 13:58> Cosign ED Attending Scott Attestation: I was immediately available in the department for consultation. Documentation has been reviewed.
== END 2021-02-05 18:58 | disposition home or self-care (01) ==
PROVIDERS: Emergency Medicine; Emergency Provider Student in an Organized Health Care Education/Training Program
DX: J18.9 Pneumonia, unspecified organism (principal); Z20.822 Contact with and (suspected) exposure to COVID-19
CPT/HCPCS: 36415; 71046; 80053; 82550; 83690; 83735; 84484; 85025; 87635; 93005; 99284; C9803

== ENCOUNTER → 2021-03-18 09:59 | Outpatient (CLI) | payer OTHER, SELFPAY ==
[2021-03-18 12:49] LABS: Urine N gonorrhoeae NOT DETECTED
[2021-03-18 12:50] LABS: Urine Chlamydia NOT DETECTED
== END ==
PROVIDERS: Visit Provider Nurse Practitioner Critical Care Medicine
DX: R30.0 Dysuria (principal)
CPT/HCPCS: 87086; 87210; 87491; 87591

== ENCOUNTER → 2021-09-19 17:51 | Outpatient (CLI) | payer OTHER, SELFPAY ==
[2021-09-19 19:40] LABS: Urine N gonorrhoeae NOT DETECTED
[2021-09-19 19:48] LABS: Urine Chlamydia NOT DETECTED
[2021-09-20 19:33] LABS: HIV 1 & 2 Ab/Ag 4th Gen Combo NEGATIVE (NEGATIVE); Hep C Virus Ab w/Reflex Quant NEGATIVE s/c (NEGATIVE); Hepatitis B Surface Antigen NEGATIVE s/c (NEGATIVE)
[2021-09-21 00:08] LABS: HSV 2 IGG AB < 0.91 index (0.00-0.90); HSV1IGG < 0.91 index (0.00-0.90)
[2021-09-21 05:12] LABS: RPR Screen Non Reactive (Non Reactive)
[2021-09-22 22:06] LABS: HSV I/II IgM 0.92 Ratio (0.00-0.90)
== END ==
PROVIDERS: Referring Provider Nurse Practitioner Family; Visit Provider Nurse Practitioner Family
DX: Z72.51 High risk heterosexual behavior (principal)
CPT/HCPCS: 36415; 86592; 86694; 86695; 86696; 86803; 87340; 87389; 87491; 87591

== ENCOUNTER → 2021-10-11 17:55 | Outpatient (CLI) | payer OTHER, SELFPAY ==
--- NOTE | 2021-10-11 17:56 | DI.RAD.S_ITS ---
PROCEDURE: XR CHEST 2V INDICATIONS: SOB and L sided CP, hx of PNA TECHNIQUE: 2 views of the chest were acquired. COMPARISON: [facility], CR, XR CHEST 2V, 02/05/2021, 17:07. FINDINGS: Surgical changes and devices: None. Lungs and pleura: Lungs are clear. No pleural effusions or pneumothorax. Mediastinum: Mediastinal contours are normal. Heart size is normal. Bones and chest wall: No suspicious bony abnormalities. Soft tissues appear unremarkable. IMPRESSION: No acute cardiopulmonary process demonstrated radiographically. Dictated by: Raghu Hinojosa M.D. on 10/11/2021 at 18:10 Approved by: Raghu Hinojosa M.D. on 10/11/2021 at 18:10
== END ==
PROVIDERS: PCP Family Medicine; Referring Provider Physician Assistant Medical; Visit Provider Physician Assistant Medical
DX: R06.02 Shortness of breath (principal)
CPT/HCPCS: 71046

== ENCOUNTER 2022-01-30 18:20 | Emergency (ER) | payer OTHER, SELFPAY ==
[2022-01-30 18:33] VITALS: BP 126/74; PULSE 67; RESP 16; TEMP 37; O2SAT 100; BMI 17.7
--- NOTE | 2022-01-30 18:37 | DI.RAD.S_ITS ---
PROCEDURE: XR CHEST 1V INDICATIONS: Shortness of breath TECHNIQUE: One view of the chest was acquired. COMPARISON: [facility], CR, XR CHEST 2V, 10/11/2021, 17:57. [facility], CR, XR CHEST 1V, 12/12/2020, 0:29. FINDINGS: Surgical changes and devices: None. Lungs and pleura: Lungs are clear. No pleural effusions or pneumothorax. Mediastinum: Mediastinal contours appear normal. Heart size is normal. Bones and chest wall: No suspicious bony lesions. Overlying soft tissues appear unremarkable. IMPRESSION: No acute cardiopulmonary process demonstrated radiographically. Dictated by: Raghu Hinojosa M.D. on 01/30/2022 at 19:15 Approved by: Raghu Hinojosa M.D. on 01/30/2022 at 19:16
[2022-01-30 18:57] LABS: Add Manual Diff / Slide Review NO; Basophils Absolute Auto 0 /uL (0-100); Basophils Percent Auto 0.4 % (0-2); Eosinophils Absolute Auto 200 /uL (0-450); Eosinophils Percent Auto 3.3 % (2-4); Hematocrit 39.4 % (36-46); Hemoglobin 13.5 g/dL (12.0-16.0); Lymphocytes Absolute Auto 1900 /uL (1100-4500); Mean Corpuscular HGB Conc 34.3 % (30-36); Mean Corpuscular Hemoglobin 31.6 PG (26-34); Mean Corpuscular Volume 92.1 fL (80-100); Monocytes Absolute Auto 500 /uL (0-900); Monocytes Percent Auto 7.6 % (3-14); Neutrophils Absolute Auto 3400 /uL (1500-7000); Neutrophils Percent Auto 56.7 % (50-75); Platelet Count 160 X10^3/uL (150-400); Red Blood Cell Count 4.28 X10^6/uL (4.0-5.2); Red Cell Distribution Width 12.3 % (11.6-14.8)
[2022-01-30 19:18] LABS: INR 1.2 (0.9-1.3)
[2022-01-30 19:22] LABS: Alanine Aminotransferase 23 IU/L (<35); Albumin Globulin Ratio 1.5 (1.0-2.8); Alkaline Phosphatase 50 U/L (38-126); Aspartate Aminotransferase 26 IU/L (14-36); BUN Creatinine Ratio 24.6 (6-22); Bilirubin Total 0.4 mg/dL (0.2-1.3); Blood Urea Nitrogen 15 mg/dL (7-17); Calcium 9.5 mg/dL (8.4-10.2); Carbon Dioxide 25 mmol/L (22-32); Chloride 103 mmol/L (98-107); Estimated Glomerular Filt Rate > 60 mL/min (>60); Globulin 3.4 g/dL (1.7-4.1); Glucose 92 mg/dL (70-100); HEMOLYSIS < 15 (0-50); Potassium 3.6 mmol/L (3.4-5.1); Sodium 141 mmol/L (137-145); Total Protein 8.4 g/dL (6.3-8.2)
[2022-01-30 19:23] LABS: Lactate (Lactic Acid) 1.2 mmol/L (0.7-2.1)
[2022-01-30 19:34] LABS: NT-proBNP (BNP-Adult 18+) 35 pg/mL (<125); Troponin I < 0.012 ng/mL (0.01-0.034)
[2022-01-30 19:53] LABS: Influenza A - CEPHEID Flu A NEGATIVE (NEGATIVE); Influenza B - CEPHEID Flu B NEGATIVE (NEGATIVE); Respiratory Syncytial Virus Negative (Negative)
[2022-01-30 19:55] LABS: COVID-19 CEPHEID 4-PLEX PCR Negative (Negative)
--- NOTE | 2022-01-30 20:04 | ED_ITS ---
HPI - URI/Sore Throat General Chief Complaint: Upper Respiratory Symptoms Stated Complaint: needs lungs checked out Time Seen by Provider: 01/30/22 19:39 Source: patient Mode of arrival: Ambulatory History of Present Illness HPI Narrative: Patient is a 31-year-old female who was recently diagnosed with a DVT after a long car ride she is currently on Eliquis. Presents today with burning in her lungs. She denies any hemoptysis she is not really having shortness of breath. She has some mild chest discomfort. No fever chills or cough. She was sent to the ED to rule out pulmonary embolism. She denies any fever chills or productive cough. No significant chest pain she describes it as chest burning. Related Data Home Medications Medication Instructions Recorded Confirmed No Known Home Medications 03/29/21 09/19/21 Allergies Allergy/AdvReac Type Severity Reaction Status Date / Time No Known Drug Allergies Allergy Verified 09/19/21 17:30 Review of Systems Review of Systems Narrative: GENERAL: Denies chills, fatigue, malaise, fever, sweats, travel HEENT: Denies sinus pain, ear pain, sore throat, difficulty swallowing, neck pa in RESPIRATORY: See HPI CARDIOVASCULAR: Denies chest pain, palpitations, orthopnea, edema GASTROINTESTINAL: Denies nausea, vomiting, abdominal pain, diarrhea, constipation, melena. : Denies dysuria, frequency, incontinence, hematuria, urinary retention, flank pain. MUSCULOSKELETAL: Denies weakness, joint pain, or bony pain SKIN: No rash, no erythema, no pruritus NEUROLOGIC: Denies weakness, dizziness, headache, numbness, change in speech, confusion PSYCHIATRIC: No concerning psychosocial issues. 12 point review of systems is negative except for those stated above and HPI Patient History Medical History Bacterial vaginosis Healthy adult Social History Smoking Status: Never smoker Smoking Status: Never smoker alcohol intake frequency: a few times a month Substance Use Type: does not use Exam Initial Vital Signs Initial Vital Signs: Vital Signs Temperature 98.6 F 01/30/22 18:33 Pulse Rate 67 01/30/22 18:33 Respiratory Rate 16 01/30/22 18:33 Blood Pressure 126/74 01/30/22 18:33 Pulse Oximetry 100 01/30/22 18:33 Oxygen Delivery Method 01/30/22 18:33 GENERAL: Alert pleasant 31-year-old female and in no acute distress. HEENT: Head atraumatic,EOMI, pupils reactive, face symmetric, moist mucous membranes CARDIOVASCULAR: Regular rate and rhythm without murmurs, rubs or gallops. RESPIRATORY: Breath sounds equal bilaterally, no wheezes rales or rhonchi. ABDOMEN: Soft, nontender. Normoactive bowel sounds all 4 quadrants. No guarding or rebound. EXTREMITIES: Normal range of motion, no clubbing or edema. Neurovascularly intact NEUROLOGICAL: Alert and oriented x4.Normal gait and speech. SKIN: Warm, dry, no laceration, no petechiae, no rashes or lesions. Course Orders Ordered: ED Orders 01/30/22 18:37 XR chest 1V Stat EKG-12 Lead Stat Measure peak expiratory flow ONCE RT Consult Eval and Treat NOW 01/30/22 18:45 Complete Blood Count AUTO DIFF Stat Comprehensive Metabolic Panel Stat Covid-19 + FLU A/B + RSV - PCR Stat Lactate (Lactic Acid) Stat NT-proBNP (BNP-Adult 18+) Stat Prothrombin Time INR Stat Troponin I Stat 01/30/22 20:33 CT angio chest PE protocol Stat Vital Signs Vital signs: Vital Signs - 8 hr 01/30/22 18:33 Temperature 98.6 F Pulse Rate 67 Respiratory Rate 16 Blood Pressure 126/74 Pulse Oximetry 100 Oxygen Delivery Method Room Air MDM - URI/Sore Throat Lab Data Result diagrams: 01/30/22 18:45 01/30/22 18:45 Labs: Lab Results 01/30/22 01/30/22 01/30/22 Range/Units 18:45 18:45 18:45 WBC 6.0 (4.5-11.0) X10^3/uL RBC 4.28 (4.0-5.2) X10^6/uL Hgb 13.5 (12.0-16.0) g/dL Hct 39.4 (36-46) % MCV 92.1 (80-100) fL MCH 31.6 (26-34) PG MCHC 34.3 (30-36) % RDW 12.3 (11.6-14.8) % Plt Count 160 (150-400) X10^3/uL Neut % (Auto) 56.7 (50-75) % Lymph % (Auto) 32.0 (25-40) % [place] % (Auto) 7.6 (3-14) % Eos % (Auto) 3.3 (2-4) % Baso % (Auto) 0.4 (0-2) % Neut # (Auto) 3400 (7155-4550) /uL Lymph # (Auto) 1900 (0683-3466) /uL [place] # (Auto) 500 (0-900) /uL Eos # (Auto) 200 (0-450) /uL Baso # (Auto) 0 (0-100) /uL PT 14.0 H (10.1-12.7) SECONDS INR 1.2 (0.9-1.3) Sodium 141 (137-145) mmol/L Potassium 3.6 (3.4-5.1) mmol/L Chloride 103 (98-107) mmol/L Carbon Dioxide 25 (22-32) mmol/L BUN 15 (7-17) mg/dL Creatinine 0.61 (0.52-1.04) mg/dL Estimated GFR > 60 (>60) mL/min BUN/Creatinine Ratio 24.6 H (6-22) Glucose 92 (70-100) mg/dL Lactate (0.7-2.1) mmol/L Calcium 9.5 (8.4-10.2) mg/dL Total Bilirubin 0.4 (0.2-1.3) mg/dL AST 26 (14-36) IU/L ALT 23 (<35) IU/L Alkaline Phosphatase 50 (38-126) U/L Troponin I < 0.012 (0.01-0.034) ng/mL NT-Pro-B Natriuret Pep 35 (<125) pg/mL Total Protein 8.4 H (6.3-8.2) g/dL Albumin 5.0 (3.5-5.0) g/dL Globulin 3.4 (1.7-4.1) g/dL Albumin/Globulin Ratio 1.5 (1.0-2.8) SARS-CoV-2 (PCR) (Negative) Influenza A (RT-PCR) (NEGATIVE) Influenza B (RT-PCR) (NEGATIVE) RSV (PCR) (Negative) 01/30/22 01/30/22 Range/Units 18:45 18:45 WBC (4.5-11.0) X10^3/uL RBC (4.0-5.2) X10^6/uL Hgb (12.0-16.0) g/dL Hct (36-46) % MCV (80-100) fL MCH (26-34) PG MCHC (30-36) % RDW (11.6-14.8) % Plt Count (150-400) X10^3/uL Neut % (Auto) (50-75) % Lymph % (Auto) (25-40) % [place] % (Auto) (3-14) % Eos % (Auto) (2-4) % Baso % (Auto) (0-2) % Neut # (Auto) (3658-8247) /uL Lymph # (Auto) (4457-8088) /uL [place] # (Auto) (0-900) /uL Eos # (Auto) (0-450) /uL Baso # (Auto) (0-100) /uL PT (10.1-12.7) SECONDS INR (0.9-1.3) Sodium (137-145) mmol/L Potassium (3.4-5.1) mmol/L Chloride (98-107) mmol/L Carbon Dioxide (22-32) mmol/L BUN (7-17) mg/dL Creatinine (0.52-1.04) mg/dL Estimated GFR (>60) mL/min BUN/Creatinine Ratio (6-22) Glucose (70-100) mg/dL Lactate 1.2 (0.7-2.1) mmol/L Calcium (8.4-10.2) mg/dL Total Bilirubin (0.2-1.3) mg/dL AST (14-36) IU/L ALT (<35) IU/L Alkaline Phosphatase (38-126) U/L Troponin I (0.01-0.034) ng/mL NT-Pro-B Natriuret Pep (<125) pg/mL Total Protein (6.3-8.2) g/dL Albumin (3.5-5.0) g/dL Globulin (1.7-4.1) g/dL Albumin/Globulin Ratio (1.0-2.8) SARS-CoV-2 (PCR) Negative (Negative) Influenza A (RT-PCR) Flu a negative (NEGATIVE) Influenza B (RT-PCR) Flu b negative (NEGATIVE) RSV (PCR) Negative (Negative) Point of Care Testing Test Results Negative Imaging Data Chest x-ray: Radiologist's Impression: XRay Report Signed Patient: Shayla Rubin MR#: [id number] : 1990 Acct:[id number] Age/Sex: 31 / F Date of Service: 01/30/22 Loc: ED Accession Number: [id number] ?? Procedure: XR chest 1V Ordering Provider: Diana Hidalgo D.O. PROCEDURE:? XR CHEST 1V ? INDICATIONS:? Shortness of breath ? TECHNIQUE:? One view of the chest was acquired.? ? COMPARISON:? [facility], CR, XR CHEST 2V, 10/11/2021, 17:57.? [facility], CR, XR CHEST 1V, 12/12/2020, 0:29. ? FINDINGS:? ? Surgical changes and devices:? None.? ? Lungs and pleura:? Lungs are clear.? No pleural effusions or pneumothorax.? ? Mediastinum:? Mediastinal contours appear normal.? Heart size is normal.? ? Bones and chest wall:? No suspicious bony lesions.? Overlying soft tissues appear unremarkable.? ? IMPRESSION:? No acute cardiopulmonary process demonstrated radiographically. ? ? Dictated by: Raghu Hinojosa M.D. on 01/30/2022 at 19:15 ? CT scan - chest: Radiologist's Impression: Signed Patient: Shayla Rubin MR#: [id number] : 1990 Acct:[id number] Age/Sex: 31 / F Date of Service: 01/30/22 Loc: ED Accession Number: [id number] ?? Procedure: CT angio chest PE protocol Ordering Provider: Diana Hidalgo D.O. PROCEDURE:? CT ANGIO CHEST PE PROTOCOL ? INDICATIONS:? known dvt sob ? TECHNIQUE:? After the administration of intravenous contrast, 2 mm thick sections acquired from the pulmonary apices to the posterior costophrenic angles.? 3-dimensional maximum intensity projection (MIP) coronal and sagittal reformats were then acquired through the thorax.? For radiation dose reduction, the following was used:? automated exposure control, adjustment of mA and/or kV according to patient size.? ? COMPARISON:? [facility], CR, XR CHEST 1V, 01/30/2022, 18:49. ? FINDINGS:? Image quality:? Excellent.? ? Pulmonary arteries:? Pulmonary arteries are normal in size, and demonstrate no intraluminal filling defects to suggest central pulmonary embolism.? ? Lower Neck: No lymphadenopathy by size criteria. Thyroid:? Visualized thyroid demonstrates no discrete nodules. Axillae: No lymphadenopathy by size criteria. Chest Wall:? Unremarkable.? Bones: Visualized osseous structures demonstrate no suspicious lesions. ? Lungs and Airways:? No acute consolidation.? No suspicious pulmonary nodules. The trachea and central airways are patent. Pleura: No pneumothorax or pleural effusions.? ? Heart: Heart size is normal.? No pericardial effusion. Thoracic Vessels: The thoracic aorta is normal in size.? Mediastinum and [place]: No lymphadenopathy by size criteria. Esophagus: No wall thickening. No hiatal hernia. ? Abdomen:? Visualized upper abdominal solid organs appear normal in the early arterial phase of enhancement.? ? IMPRESSION:? ? 1. No evidence of pulmonary embolism. ? 2. No acute airspace consolidation.? ? ? ECG Data Interpretation: Normal sinus rhythm rate 60 [place] interval [address] changes no T-wave inversions no Q-waves MDM Narrative Medical decision making narrative: Patient has known DVT already on Eliquis. Presenting with some chest burning. Workup today is negative. CT angio does not show any PE. She is not hypoxic or tachycardic. At this time no indication for any further workup. Troponin is negative along with viral panel. Discharge Plan Departure Patient Disposition: Home Clinical Impression: Dyspnea Instructions: DI for Acute Bronchitis Activity Restrictions/Additional Instructions: *You have been diagnosed with at this time no real cause of your symptoms is found *What to do: You do not have a pulmonary embolism there is no evidence of pneumonia or virus infection. Blood work is overall reassuring. *Continue to take medications as directed *Follow up with your primary care provider in 2-3 days or call [phone] *Return to ER if you should have increasing shortness of breath, increasing chest pain or any new, worsening or concerning symptoms Prescriptions: No Action No Known Home Medications Referrals: Yoselyn Rainey DO [Primary Care Provider] - Visit Report Forms: Patient Portal/API
--- NOTE | 2022-01-30 20:33 | DI.CT.S_ITS ---
PROCEDURE: CT ANGIO CHEST PE PROTOCOL INDICATIONS: known dvt sob TECHNIQUE: After the administration of intravenous contrast, 2 mm thick sections acquired from the pulmonary apices to the posterior costophrenic angles. 3-dimensional maximum intensity projection (MIP) coronal and sagittal reformats were then acquired through the thorax. For radiation dose reduction, the following was used: automated exposure control, adjustment of mA and/or kV according to patient size. COMPARISON: [facility], CR, XR CHEST 1V, 01/30/2022, 18:49. FINDINGS: Image quality: Excellent. Pulmonary arteries: Pulmonary arteries are normal in size, and demonstrate no intraluminal filling defects to suggest central pulmonary embolism. Lower Neck: No lymphadenopathy by size criteria. Thyroid: Visualized thyroid demonstrates no discrete nodules. Axillae: No lymphadenopathy by size criteria. Chest Wall: Unremarkable. Bones: Visualized osseous structures demonstrate no suspicious lesions. Lungs and Airways: No acute consolidation. No suspicious pulmonary nodules. The trachea and central airways are patent. Pleura: No pneumothorax or pleural effusions. Heart: Heart size is normal. No pericardial effusion. Thoracic Vessels: The thoracic aorta is normal in size. Mediastinum and Delores: No lymphadenopathy by size criteria. Esophagus: No wall thickening. No hiatal hernia. Abdomen: Visualized upper abdominal solid organs appear normal in the early arterial phase of enhancement. IMPRESSION: 1. No evidence of pulmonary embolism. 2. No acute airspace consolidation. Dictated by: Tray Bernard M.D. on 01/30/2022 at 22:19 Approved by: Tray Bernard M.D. on 01/30/2022 at 22:20
[2022-01-30 22:53] VITALS: PULSE 61; RESP 16; O2SAT 99
== END 2022-01-30 22:54 | disposition home or self-care (01) ==
PROVIDERS: Emergency Provider Emergency Medicine; PCP Family Medicine
DX: R06.00 Dyspnea, unspecified (principal); R07.9 Chest pain, unspecified; Z79.01 Long term (current) use of anticoagulants; Z20.822 Contact with and (suspected) exposure to COVID-19
CPT/HCPCS: 0241U; 36415; 71045; 71275; 80053; 81025; 83605; 83880; 84484; 85025; 85610; 93005; 93010; 99284; Q9967

== ENCOUNTER 2022-10-26 16:28 | Emergency (ER) | payer OTHER, SELFPAY ==
[2022-10-26 16:37] VITALS: BP 113/71; PULSE 71; RESP 18; TEMP 36.7; O2SAT 100; BMI 19.3
--- NOTE | 2022-10-26 16:41 | DI.US.S_ITS ---
PROCEDURE: US PERIPH VENOUS LOW EXTREM LT INDICATIONS: PAIN TECHNIQUE: Real-time imaging, as well as color and pulse Doppler interrogation, were performed of the lower extremity deep veins from the inguinal ligament to the popliteal fossa, with documentation of the visualized calf veins. COMPARISON: None. FINDINGS: The common femoral, femoral, popliteal, and the visualized calf veins are normally compressible, and free of intraluminal thrombus. Color and pulse Doppler demonstrate normal phasic intraluminal flow. There is normal augmentation response to distal compression maneuver. IMPRESSION: No findings of lower extremity deep venous thrombosis. Approved by: Paddy Martin M.D. on 10/26/2022 at 17:49
[2022-10-26 18:23] VITALS: BP 110/67; PULSE 69; RESP 16; O2SAT 100
--- NOTE | 2022-10-26 18:24 | ED_ITS ---
HPI - Extremity Problem <Scott Harmon PA-C - Last Filed: 10/26/22 19:01> General Chief complaint: Extremity Problem,Nontraumatic Stated complaint: Poss blood clot L leg Time Seen by Provider: 10/26/22 18:23 Source: patient Mode of arrival: Ambulatory History of Present Illness HPI Narrative: This is a 32-year-old female presents to the emergency department due to complaints of left upper calf pain. Similar to a DVT she had approximately 10 months ago. She was treated with 4 months of Eliquis with complete resolution of her symptoms. Patient reports a similar achiness in her left calf 2 days ago. Denies any chest pain or shortness of breath. Related Data Home Medications Medication Instructions Recorded Confirmed apixaban 5 mg tablet (Eliquis) 5 mg PO BID 03/10/22 04/01/22 Allergies Allergy/AdvReac Type Severity Reaction Status Date / Time No Known Drug Allergies Allergy Verified 10/26/22 16:40 Review of Systems <Scott Harmon PA-C - Last Filed: 10/26/22 19:01> Review of Systems Narrative: GENERAL: Denies chills, fatigue, malaise, fever, sweats. HEENT: Denies sinus pain, ear pain, sore throat, difficulty swallowing, dizziness. RESPIRATORY: Denies dyspnea, cough, wheezing, hemoptysis, sputum. CARDIOVASCULAR: Denies chest pain, palpitations, orthopnea, edema, GASTROINTESTINAL: Denies nausea, vomiting, abdominal pain, diarrhea, constipation, melena. : Denies dysuria, frequency, incontinence, hematuria, urinary retention. MUSCULOSKELETAL: Left calf pain SKIN: Denies rash, skin lesions, or other NEUROLOGIC: Denies weakness, headache, numbness, change in speech, confusion, seizures, incoordination. PSYCHIATRIC: No concerning psychosocial issues. 12 point review of systems is negative except for those stated above Patient History <Scott Harmon PA-C - Last Filed: 10/26/22 19:01> Medical History Bacterial vaginosis Healthy adult Social History Smoking Status: Never smoker Smoking Status: Never smoker alcohol intake frequency: a few times a month Substance Use Type: does not use Exam <Scott Harmon PA-C - Last Filed: 10/26/22 19:01> Narrative Exam Narrative: GENERAL: Well-developed patient, in mild distress. HEAD: Atraumatic. Normocephalic. EYES: Pupils equal round and reactive. Extraocular motions intact. No scleral icterus. No injection or drainage. ENT: Nose without bleeding, purulent drainage. Throat without erythema, tonsillar hypertrophy or exudate. Airway patent. NECK: Trachea midline. Non tender CARDIOVASCULAR: Regular rate and rhythm without murmurs, gallops, or rubs. RESPIRATORY: Clear to auscultation. Breath sounds equal bilaterally. No wheezes, rales, or rhonchi. GASTROINTESTINAL: Abdomen soft, non-tender, nondistended. EXTREMITIES: Mild tenderness to palpation to posterior left calf no swelling noted BACK: Nontender without deformity or crepitance. No flank tenderness. NEURO: AOx3. SKIN: No rash or erythema of visible areas Initial Vital Signs Initial Vital Signs: Vital Signs Temperature 98.1 F 10/26/22 16:37 Pulse Rate 71 10/26/22 16:37 Respiratory Rate 18 10/26/22 16:37 Blood Pressure 113/71 10/26/22 16:37 Pulse Oximetry 100 10/26/22 16:37 Oxygen Delivery Method Room Air 10/26/22 16:37 <Katherine Joseph DO - Last Filed: 11/10/22 04:53> Initial Vital Signs Initial Vital Signs: Vital Signs Temperature 98.1 F 10/26/22 16:37 Pulse Rate 71 10/26/22 16:37 Respiratory Rate 18 10/26/22 16:37 Blood Pressure 113/71 10/26/22 16:37 Pulse Oximetry 100 10/26/22 16:37 Oxygen Delivery Method Room Air 10/26/22 16:37 Course <Scott Harmon PA-C - Last Filed: 10/26/22 19:01> Orders Ordered: ED Orders 10/26/22 16:41 US periph venous low extrem lt Stat Vital Signs Vital signs: Vital Signs - 8 hr 10/26/22 16:37 10/26/22 18:23 Temperature 98.1 F Pulse Rate 71 69 Respiratory Rate 18 16 Blood Pressure 113/71 110/67 Pulse Oximetry 100 100 Oxygen Delivery Method Room Air Room Air <Katherine Joseph DO - Last Filed: 11/10/22 04:53> Orders Ordered: ED Orders 10/26/22 16:41 US periph venous low extrem lt Stat Vital Signs Vital signs: Vital Signs - 8 hr 10/26/22 16:37 10/26/22 18:23 Temperature 98.1 F Pulse Rate 71 69 Respiratory Rate 18 16 Blood Pressure 113/71 110/67 Pulse Oximetry 100 100 Oxygen Delivery Method Room Air Room Air MDM - Extremity (Nontraumatic) <Scott Harmon PA-C - Last Filed: 10/26/22 19:01> Imaging Data US - DVT: Radiologist's Impression: [address] [address] Ultrasound Report Signed Patient: Shayla Rubin MR#: [id number] : 1990 Acct:[id number] Age/Sex: 32 / F Date of Service: 10/26/22 Loc: ED Accession Number: [id number] ?? Procedure: US periph venous low extrem lt Ordering Provider: Katherine Joseph D.O. PROCEDURE:? US PERIPH VENOUS LOW EXTREM LT ? INDICATIONS:? PAIN ? TECHNIQUE:? Real-time imaging, as well as color and pulse Doppler interrogation, were performed of the lower extremity deep veins from the inguinal ligament to the popliteal fossa, with documentation of the visualized calf veins.? ? COMPARISON:? None. ? FINDINGS:? The common femoral, femoral, popliteal, and the visualized calf veins are normally compressible, and free of intraluminal thrombus.? Color and pulse Doppler demonstrate normal phasic intraluminal flow.? There is normal augmentation response to distal compression maneuver.? ? ? IMPRESSION:? No findings of lower extremity deep venous thrombosis. ? ? Approved by: Paddy Martin M.D. on 10/26/2022 at 17:49? MDM Narrative Medical decision making narrative: MDM * differential diagnosis includes but not limited to DVT, cellulitis, musculoskeletal injury * Prior records reviewed: Patient was seen here approximately 10 months ago ago due to shortness of breath. CT PE negative. * My lab interpretation: None obtained * My imaging interpretation: DVT ultrasound negative for DVT * Clinical Decision Rules/Scores evaluated: None * Independent discussions with: None ED Course: This is a 32-year-old female presents to the emergency department complaining of left lower extremity pain concerning for another DVT. No trauma to the injury area. Ultrasound negative for DVT. Shared Decision Making: Discussed plan with patient who is comfortable with the plan Social Considerations: None Disposition: Discharged to home Discharge Plan Departure Patient Disposition: Home Clinical Impression: Acute leg pain Activity Restrictions/Additional Instructions: Thank you for coming to the [facility] Emergency Department today. Your ultrasound came back negative for DVT I suspect this is a mild muscle strain that should improve over time. I hope you feel better soon. Please follow up with your primary care provider within a week if your symptoms continue. If you do not have a primary care provider please contact the [facility] Resource line at [phone]. They will ask some questions about your medical history and help you get set up with a provider in the community. Prescriptions: No Action Eliquis 5 mg tablet 5 mg PO BID Referrals: Yoselyn Rainey DO [Primary Care Provider] - Stand Alone Forms: Patient Portal/API <Katherine Joseph DO - Last Filed: 11/10/22 04:53> Cosign ED Attending [employer] Attestation: I was immediately available in the department for consultation. Documentation has been reviewed.
== END 2022-10-26 19:09 | disposition home or self-care (01) ==
PROVIDERS: Emergency Provider Physician Assistant Medical; PCP Family Medicine
DX: M79.605 Pain in left leg (principal)
CPT/HCPCS: 93971; 99283